=== PATIENT | male | born 1960 | race Two or more races ===

== ENCOUNTER 2018-08-09 15:40 | Inpatient (IN) | payer MEDICAID ==
[~2018-08-09] VITALS: Ht 172.7 cm; Wt 75.0 kg
[2018-08-09 17:11] LABS: BASOPHILS # (AUTO) 0.1 K/uL (0.0-8.0); EOSINOPHILS # (AUTO) 0.2 K/uL (0.0-0.7); EOSINOPHILS % (AUTO) 1.1 % (0.0-7.0); HEMOGLOBIN 12.6 g/dL (12.5-16.3); LYMPHOCYTES # (AUTO) 2.4 K/uL (20.0-40.0); LYMPHOCYTES % (AUTO) 17.7 % (20.5-51.5); MEAN CORPUSCULAR HEMOGLOBIN 30.8 uug (23.8-33.4); MEAN CORPUSCULAR HGB CONC 34 g/dL (32.5-36.3); MEAN CORPUSCULAR VOLUME 90.2 fL (73.0-96.2); MONOCYTES # (AUTO) 1.4 K/uL (2.0-10.0); MONOCYTES % (AUTO) 10.2 % (0.0-11.0); NEUTROPHILS # (AUTO) 9.4 K/uL (1.8-8.9); PLATELET COUNT (AUTO) 352 K/uL (152-348); WHITE BLOOD COUNT (AUTO) 13.5 K/uL (3.6-10.2)
[2018-08-09 17:37] LABS: BILIRUBIN,DIRECT 0.4 mg/dL (0.0-0.2); BILIRUBIN,TOTAL 1.1 mg/dL (0.2-1.0); CREATININE 0.7 mg/dL (0.6-1.3); POTASSIUM 3.7 mmol/L (3.5-5.1); TOTAL PROTEIN, SERUM 8.3 g/dL (6.4-8.2)
[2018-08-09] MEDS ORDERED: TEMAZEPAM 15 MG CAPSULE PO PRN (18:45)
[2018-08-09] MEDS ORDERED: ACETAMINOPHEN 325 MG TABLET PO PRN (18:45)
[2018-08-09] MEDS ORDERED: LORAZEPAM 2 MG/1 ML VIAL IV PRN (18:45)
[2018-08-09] MEDS ORDERED: Z GUARD REMEDY PASTE 57 GM TUBE TOP PRN (18:45)
[2018-08-09] MEDS ORDERED: HYDROMORPHONE 1 MG/1 ML DISP.SYRIN IV PRN (18:45)
[2018-08-09] MEDS ORDERED: MAGNESIUM HYDROXIDE 30 ML LIQUID UDC PO PRN (18:45)
[2018-08-09] MEDS ORDERED: ONDANSETRON 4 MG/2 ML VIAL IV PRN (18:45)
[2018-08-09] MEDS ORDERED: VANCOMYCIN IV 200 ML ONE (18:59)
[2018-08-09] MEDS ORDERED: VANCOMYCIN IV 1,000 MG in IV DEXTROSE 5% 250 ML IV ONE (19:00)
[2018-08-09 20:22] VITALS: BP_SYST 135; BP_SYST 152; BP_DIAS 82; BP_DIAS 84
[2018-08-09] MEDS: IV NS 1000 ML 1,000 ML IV PRN (21:27)
[2018-08-09] MEDS: HYDROCODONE/APAP 5-325MG TABLET PO PRN (21:39)
[2018-08-10] MEDS ORDERED: VANCOMYCIN IV 1,500 MG in IV DEXTROSE 5% 500 ML IV SCH (03:00)
[2018-08-10 03:21] LABS: *BILIRUBIN,URIN NEGATIVE (NEGATIVE); *BLOOD, URINE 1+ (NEGATIVE); *CLARITY,URINE CLEAR (CLEAR); *COLOR,URINE YELLOW (YELLOW); *KETONES,URINE NEGATIVE (NEGATIVE); *UROBILINOGEN,URINE 0.2 E.U./dl (NORMAL); LEUKOCYTE ESTERASE ,URINE NEGATIVE (NEGATIVE); NITRITE, URINE NEGATIVE (NEGATIVE); PH,URINE 5.5 (5.0-8.0); UGLUCOSE NEGATIVE (NEGATIVE)
[2018-08-10 03:31] LABS: BACTERIA,URINE NONE SEEN /HPF (NONE SEEN); SQUAMOUS EPITHELIAL CELL,UR FEW /HPF (NONE SEEN); WBC,URINE 0-3 /HPF (0-3)
[2018-08-10 03:38] VITALS: BP 138/91
[2018-08-10] MEDS: VANCOMYCIN IV 1,250 MG in IV DEXTROSE 5% 500 ML IV SCH ×2 (04:31→16:48)
[2018-08-10 06:42] LABS: BASOPHILS # (AUTO) 0.1 K/uL (0.0-8.0); BASOPHILS % (AUTO) 1.2 % (0.0-2.0); EOSINOPHILS # (AUTO) 0.3 K/uL (0.0-0.7); EOSINOPHILS % (AUTO) 2.4 % (0.0-7.0); HEMATOCRIT 34.2 % (36.7-47.1); HEMOGLOBIN 11.6 g/dL (12.5-16.3); LYMPHOCYTES # (AUTO) 2.1 K/uL (20.0-40.0); LYMPHOCYTES % (AUTO) 18.3 % (20.5-51.5); MEAN CORPUSCULAR HEMOGLOBIN 30.8 uug (23.8-33.4); MEAN CORPUSCULAR HGB CONC 34 g/dL (32.5-36.3); MEAN CORPUSCULAR VOLUME 90.5 fL (73.0-96.2); MONOCYTES # (AUTO) 1.1 K/uL (2.0-10.0); NEUTROPHILS # (AUTO) 7.8 K/uL (1.8-8.9); NEUTROPHILS % (AUTO) 68.1 % (38.5-71.5); PLATELET COUNT (AUTO) 336 K/uL (152-348); RED BLOOD CELL COUNT(AUTO) 3.78 MIL/uL (4.06-5.63); WHITE BLOOD COUNT (AUTO) 11.4 K/uL (3.6-10.2)
[2018-08-10 07:00] LABS: BILIRUBIN,TOTAL 0.9 mg/dL (0.2-1.0); CREATININE 0.8 mg/dL (0.6-1.3); MAGNESIUM 2.1 mg/dL (1.8-2.4); PHOSPHOROUS 3.2 mg/dL (2.5-4.9); POTASSIUM 3.4 mmol/L (3.5-5.1)
[2018-08-10] MEDS: THIAMINE HCL 100 MG TABLET PO SCH (10:32)
[2018-08-10] MEDS: MULTIVITAMINS,THERAPEUTIC TABLET PO SCH (10:32)
[2018-08-10] MEDS: FOLIC ACID 1 MG TABLET PO SCH (10:32)
[2018-08-10] MEDS: PANTOPRAZOLE SODIUM 40 MG VIAL IV SCH (10:32)
[2018-08-10 11:00] VITALS: BP 152/85
[2018-08-10] MEDS ORDERED: POTASSIUM CHLORIDE 20 MEQ TAB.PRT.SR PO ONE (11:15)
[2018-08-10] MEDS: IV NS 1000 ML 1,000 ML IV PRN (13:03)
[2018-08-10] MEDS: GUAIFENESIN/DEXTROMETHORPHAN 5 ML UDC PO PRN ×2 (13:03→20:09)
[2018-08-10 19:36] VITALS: BP 153/87
[2018-08-10] MEDS: HYDROCODONE/APAP 5-325MG TABLET PO PRN (20:09)
[2018-08-10] MEDS: CEFTRIAXONE 1 G in IV DEXTROSE 5% 50 ML IV SCH (21:13)
[2018-08-11] MEDS: VANCOMYCIN IV 1,250 MG in IV DEXTROSE 5% 500 ML IV SCH ×2 (03:09→14:56)
[2018-08-11 03:41] VITALS: BP 124/75
[2018-08-11] MEDS: IV NS 1000 ML 1,000 ML IV PRN ×2 (05:57→19:14)
[2018-08-11 06:30] LABS: BASOPHILS # (AUTO) 0.1 K/uL (0.0-8.0); BASOPHILS % (AUTO) 0.5 % (0.0-2.0); EOSINOPHILS # (AUTO) 0.3 K/uL (0.0-0.7); EOSINOPHILS % (AUTO) 2.6 % (0.0-7.0); HEMATOCRIT 34.5 % (36.7-47.1); HEMOGLOBIN 11.5 g/dL (12.5-16.3); LYMPHOCYTES # (AUTO) 1.9 K/uL (20.0-40.0); LYMPHOCYTES % (AUTO) 16.6 % (20.5-51.5); MEAN CORPUSCULAR HEMOGLOBIN 30.3 uug (23.8-33.4); MEAN CORPUSCULAR HGB CONC 33 g/dL (32.5-36.3); MONOCYTES # (AUTO) 1.2 K/uL (2.0-10.0); MONOCYTES % (AUTO) 9.9 % (0.0-11.0); NEUTROPHILS # (AUTO) 8.3 K/uL (1.8-8.9); NEUTROPHILS % (AUTO) 70.4 % (38.5-71.5); PLATELET COUNT (AUTO) 361 K/uL (152-348); RED BLOOD CELL COUNT(AUTO) 3.79 MIL/uL (4.06-5.63); WHITE BLOOD COUNT (AUTO) 11.7 K/uL (3.6-10.2)
[2018-08-11 06:33] LABS: CREATININE 0.7 mg/dL (0.6-1.3); POTASSIUM 3.5 mmol/L (3.5-5.1)
[2018-08-11] MEDS: MULTIVITAMINS,THERAPEUTIC TABLET PO SCH (08:54)
[2018-08-11] MEDS: FOLIC ACID 1 MG TABLET PO SCH (08:54)
[2018-08-11] MEDS: THIAMINE HCL 100 MG TABLET PO SCH (08:54)
[2018-08-11] MEDS: PANTOPRAZOLE SODIUM 40 MG VIAL IV SCH (08:54)
[2018-08-11 11:26] VITALS: BP 151/80
[2018-08-11] MEDS: HYDROMORPHONE 1 MG/1 ML DISP.SYRIN IV PRN (13:33)
[2018-08-11] MEDS: GUAIFENESIN/DEXTROMETHORPHAN 5 ML UDC PO PRN (13:33)
[2018-08-11 15:20] VITALS: BP 131/86
[2018-08-11] MEDS: CULTURELLE CAPSULE PO SCH (20:30)
[2018-08-11] MEDS: CEFTRIAXONE 1 G in IV DEXTROSE 5% 50 ML IV SCH (20:45)
[2018-08-11 20:50] VITALS: BP 149/85
[2018-08-12] MEDS: VANCOMYCIN IV 1,250 MG in IV DEXTROSE 5% 500 ML IV SCH ×3 (01:17→22:49)
[2018-08-12 04:05] VITALS: BP 158/87
[2018-08-12 06:05] LABS: BASOPHILS # (AUTO) 0.1 K/uL (0.0-8.0); BASOPHILS % (AUTO) 0.9 % (0.0-2.0); EOSINOPHILS # (AUTO) 0.3 K/uL (0.0-0.7); EOSINOPHILS % (AUTO) 2.5 % (0.0-7.0); HEMATOCRIT 34.6 % (36.7-47.1); HEMOGLOBIN 11.7 g/dL (12.5-16.3); LYMPHOCYTES # (AUTO) 2.1 K/uL (20.0-40.0); LYMPHOCYTES % (AUTO) 17.1 % (20.5-51.5); MEAN CORPUSCULAR HEMOGLOBIN 30.3 uug (23.8-33.4); MEAN CORPUSCULAR HGB CONC 34 g/dL (32.5-36.3); MEAN CORPUSCULAR VOLUME 89.8 fL (73.0-96.2); MONOCYTES # (AUTO) 1.4 K/uL (2.0-10.0); MONOCYTES % (AUTO) 11.7 % (0.0-11.0); NEUTROPHILS # (AUTO) 8.4 K/uL (1.8-8.9); NEUTROPHILS % (AUTO) 67.8 % (38.5-71.5); PLATELET COUNT (AUTO) 393 K/uL (152-348); RED BLOOD CELL COUNT(AUTO) 3.86 MIL/uL (4.06-5.63); WHITE BLOOD COUNT (AUTO) 12.4 K/uL (3.6-10.2)
[2018-08-12 06:23] LABS: CREATININE 0.7 mg/dL (0.6-1.3); POTASSIUM 3.9 mmol/L (3.5-5.1)
[2018-08-12] MEDS: PANTOPRAZOLE SODIUM 40 MG TABLET.DR PO SCH (06:23)
[2018-08-12] MEDS: GUAIFENESIN/DEXTROMETHORPHAN 5 ML UDC PO PRN ×2 (06:27→20:07)
[2018-08-12] MEDS: THIAMINE HCL 100 MG TABLET PO SCH (08:44)
[2018-08-12] MEDS: FOLIC ACID 1 MG TABLET PO SCH (08:44)
[2018-08-12] MEDS: CULTURELLE CAPSULE PO SCH ×2 (08:44→20:00)
[2018-08-12] MEDS: MULTIVITAMINS,THERAPEUTIC TABLET PO SCH (08:44)
[2018-08-12] MEDS: HYDROMORPHONE 1 MG/1 ML DISP.SYRIN IV PRN ×2 (10:02→19:59)
[2018-08-12 11:39] VITALS: BP 141/91
[2018-08-12] MEDS: IV NS 1000 ML 1,000 ML IV PRN (11:53)
[2018-08-12] MEDS: AMLODIPINE 5 MG TABLET PO SCH (11:58)
[2018-08-12 15:56] VITALS: BP 155/94
[2018-08-12 17:06] LABS: *ANTI-SCLERODERMA-70 AB <0.2 AI (0.0-0.9); *SJOGREN'S ANTI-SS-A <0.2 AI (0.0-0.9); *SJOGREN'S ANTI-SS-B <0.2 AI (0.0-0.9); *SMITH ANTIBODIES <0.2 AI (0.0-0.9); ANTI-DNA(DS) AB, QN 1 IU/mL (0-9)
[2018-08-12] MEDS: ENSURE ENLIVE (VAN) 240 ML LIQUID PO SCH (17:27)
[2018-08-12] MEDS: CEFTRIAXONE 1 G in IV DEXTROSE 5% 50 ML IV SCH (20:00)
[2018-08-12] MEDS: CELECOXIB 200 MG CAPSULE PO SCH (20:00)
[2018-08-12 20:10] VITALS: BP 139/83
[2018-08-13] MEDS: GUAIFENESIN/DEXTROMETHORPHAN 5 ML UDC PO PRN ×2 (03:08→08:48)
[2018-08-13] MEDS: HYDROMORPHONE 1 MG/1 ML DISP.SYRIN IV PRN ×2 (03:09→08:47)
[2018-08-13 04:50] VITALS: BP 127/66
[2018-08-13] MEDS: PANTOPRAZOLE SODIUM 40 MG TABLET.DR PO SCH (06:15)
[2018-08-13] MEDS: IV NS 1000 ML 1,000 ML IV PRN (06:22)
[2018-08-13 07:11] LABS: BASOPHILS # (AUTO) 0.1 K/uL (0.0-8.0); BASOPHILS % (AUTO) 1.1 % (0.0-2.0); EOSINOPHILS # (AUTO) 0.4 K/uL (0.0-0.7); EOSINOPHILS % (AUTO) 3.9 % (0.0-7.0); HEMATOCRIT 35.2 % (36.7-47.1); HEMOGLOBIN 11.6 g/dL (12.5-16.3); LYMPHOCYTES # (AUTO) 2.2 K/uL (20.0-40.0); LYMPHOCYTES % (AUTO) 19.6 % (20.5-51.5); MEAN CORPUSCULAR HEMOGLOBIN 29.9 uug (23.8-33.4); MEAN CORPUSCULAR HGB CONC 33 g/dL (32.5-36.3); MEAN CORPUSCULAR VOLUME 91.2 fL (73.0-96.2); MONOCYTES # (AUTO) 1.1 K/uL (2.0-10.0); MONOCYTES % (AUTO) 9.4 % (0.0-11.0); NEUTROPHILS # (AUTO) 7.4 K/uL (1.8-8.9); PLATELET COUNT (AUTO) 395 K/uL (152-348); RED BLOOD CELL COUNT(AUTO) 3.86 MIL/uL (4.06-5.63); WHITE BLOOD COUNT (AUTO) 11.2 K/uL (3.6-10.2)
[2018-08-13 07:19] LABS: CREATININE 0.7 mg/dL (0.6-1.3); POTASSIUM 3.7 mmol/L (3.5-5.1)
[2018-08-13] MEDS: ENSURE ENLIVE (VAN) 240 ML LIQUID PO SCH ×2 (08:34→17:16)
[2018-08-13] MEDS: AMLODIPINE 5 MG TABLET PO SCH (08:45)
[2018-08-13] MEDS: CULTURELLE CAPSULE PO SCH (08:45)
[2018-08-13] MEDS: MULTIVITAMINS,THERAPEUTIC TABLET PO SCH (08:45)
[2018-08-13] MEDS: FOLIC ACID 1 MG TABLET PO SCH (08:45)
[2018-08-13] MEDS: CELECOXIB 200 MG CAPSULE PO SCH (08:45)
[2018-08-13] MEDS: THIAMINE HCL 100 MG TABLET PO SCH (08:45)
[2018-08-13] MEDS ORDERED: MULT-24 PO (10:33)
[2018-08-13] MEDS ORDERED: FOLI1TAB16 PO (10:33)
[2018-08-13] MEDS ORDERED: DOXY100C41 PO (10:33)
[2018-08-13] MEDS ORDERED: THIA100T13 PO (10:33)
[2018-08-13] MEDS ORDERED: CELE200C PO (10:33)
[2018-08-13] MEDS: VANCOMYCIN IV 1,250 MG in IV DEXTROSE 5% 500 ML IV SCH (10:56)
[2018-08-13 11:38] VITALS: BP 127/73
[2018-08-13 16:00] VITALS: BP 117/79
== END 2018-08-13 18:30 | disposition home or self-care (01) | DRG 720 ==
LOC: ER 15:44 → MEDSURG3 19:57
PROVIDERS: ADMIT Nurse Practitioner Acute Care; ATTEND Nurse Practitioner Acute Care
PROC: 0S9C3ZX Drainage of Right Knee Joint, Percutaneous Approach, Diagnostic (ICD-10-PCS; principal; 2018-08-11)
DX: A41.9 Sepsis, unspecified organism (principal); D69.59 Other secondary thrombocytopenia; E44.0 Moderate protein-calorie malnutrition; E87.1 Hypo-osmolality and hyponatremia; K70.9 Alcoholic liver disease, unspecified; L03.116 Cellulitis of left lower limb; L03.114 Cellulitis of left upper limb; K76.0 Fatty (change of) liver, not elsewhere classified; L03.115 Cellulitis of right lower limb; Z59.0 Homelessness; E66.9 Obesity, unspecified; Z68.25 Body mass index [BMI] 25.0-25.9, adult; M10.9 Gout, unspecified; F10.11 Alcohol abuse, in remission; Y90.9 Presence of alcohol in blood, level not specified; M25.461 Effusion, right knee; E87.6 Hypokalemia; I10 Essential (primary) hypertension; R26.2 Difficulty in walking, not elsewhere classified; R14.0 Abdominal distension (gaseous)
CPT/HCPCS: 36415; 70030-TC; 71045; 73700; 76700; 83605; 83690; 83735; 83986; 84100; 84550; 85025; 85651; 85730; 86038; 86592; 87040; 87070; 87075; 87205; 87806; 93005; 97116; 97530; A4663; C9113; G0378; J0696; J1170; J3370; J7030; J7060